=== PATIENT | male | born 1955 | race Hispanic/Latino ===

== ENCOUNTER → 2023-09-14 | Emergency (ER) | payer MEDICARE ==
[~2023-09-14] MED LIST: KETOROLAC 30 MG/ML INJ ONE; MORPHINE 4 MG/ML SYR ONE; ONDANSETRON 4 MG/2 ML VIAL ONE
[2023-09-14 15:00] LABS: Hematocrit 42.6 % (39.6-49.0); Lymphocytes % 10.5 % (15.3-44.8); MCV 87.4 fL (80-100); MPV 7.5 fL (7.6-11.3); Platelets 379 thou/uL (152-406); RBC Red Blood Cell Count 4.88 M/uL (4.33-5.43)
[2023-09-14 15:13] LABS: Potassium 4.1 mEq/L (3.5-5.1)
--- NOTE | 2023-09-14 16:40 | RAD REPORT ---
EXAM DESCRIPTION: [place] Single View09/14/2023 3:26 pm CLINICAL HISTORY: right lower rib pain COMPARISON: Head C Spine Cap W Con dated 09/14/2023 TECHNIQUE: Portable AP view of the chest. FINDINGS: Bibasilar subsegmental airspace opacities more pronounced on the right. No pneumothorax o r effusion. The cardiomediastinal contours are unremarkable. IMPRESSION: Bibasilar small opacities as above, favoring atelectasis.
[2023-09-14 17:00] LABS: Specific Gravity 1.021 (1.005-1.030); Urine Bilirubin NEGATIVE (Negative); Urine Blood Negative (Negative); Urine Clarity Clear (Clear); Urine Color Colorless (Yellow); Urine Glucose NEGATIVE (Negative); Urine Protein NEGATIVE (Negative); Urine Urobilinogen Normal (Normal)
--- NOTE | 2023-09-14 17:18 | RAD REPORT ---
EXAM DESCRIPTION: CT - Head C Spine Cap Christiano Murphy - 09/14/2023 3:38 pm CLINICAL HISTORY: fall from ladder COMPARISON: No comparisons TECHNIQUE: Head and cervical spine CT images were obtained without IV contrast. Chest, abdomen, and pelvis CT images were obtained following intravenous administration of 100 mL Isovue-300. Multiplanar reformats were generated and reviewed. All CT scans are performed using dose optimization technique as appropriate and may include automated exposure control or mA/KV adjustment according to patient size. FINDINGS: CT HEAD: No intracranial hemorrhage, mass effect, or edema. No evidence of acute territorial infarct. No midli ne shift or abnormal fluid collection. The ventricles are normal in caliber and configuration for age . Basal cisterns are patent. Mastoid aircells and paranasal sinuses are clear. No acute skull fractur e. CT CERVICAL SPINE: No acute cervical spine fracture or subluxation. Vertebral body heights are well maintained. Facet dat ints are normal in alignment. No hyperattenuating canal hematoma. Prevertebral and paraspinous soft t issues are unremarkable. CT CHEST: No pneumothorax, pulmonary contusion or pleural fluid collection. No mediastinal hematoma and the aor ta and pulmonary arteries are unremarkable. No chest will mass or abnormal axillary finding. No displ aced rib fracture or other significant bony finding. CT ABDOMEN/ PELVIS: No evidence of traumatic injury to solid abdominal viscera. Gallbladder shows multiple cholesterol co ntaining stones, largest measuring 2.5 cm. Small hepatic cysts, largest near the gallbladder bed maribel uring 2.4 cm. No bowel injury or significant finding. No free air, free fluid or abnormal fat strandi ng. No urinary bladder abnormality. No significant bony finding. IMPRESSION: No acute traumatic findings. Incidental findings as above.
--- NOTE | 2023-09-14 17:40 | ER ---
Nurse's Notes [facility] Name: Win Cross Age: 68 yrs Sex: Male : 1955 Arrival Date: 09/14/2023 Time: 13:15 Bed 20 Private MD: Diagnosis: Fall on and from ladder, initial encounter;Contusion of thorax, unspecified, initial encounter-right lateral rib area;Other cholelithiasis without obstruction Presentation: 09/14 13:26 Chief complaint: Patient states: Right back pain since he fell over a ladder Monday, nj1 cough Monday and pain got worse. Able to ambulate but states he cannot sit. Has taken tylenol and advil with some relief, states it doesn't hurt unless he moves a certain way or coughing. Coronavirus screen: Vaccine status: Patient reports receiving the 2nd dose of the covid vaccine. Ebola Screen: Patient denies travel to an Ebola-affected area in the 21 days before illness onset. Initial Sepsis Screen: Does the patient meet any 2 criteria? No. Patient's initial sepsis screen is negative. Does the patient have a suspected source of infection? No. Patient's initial sepsis screen is negative. Risk Assessment: Do you want to hurt yourself or someone else? Patient reports no desire to harm self or others. Onset of symptoms was September 10, 2023. 13:26 Method Of Arrival: Ambulatory [facility] 13:26 Acuity: JOSE 3 nj1 Historical: - Allergies: 13:33 No Known Allergies; nj1 - PMHx: 13:33 Hypertensive disorder; BPH; Anxiety; Depressive disorder; nj1 - PSHx: 13:33 Appendectomy; nj1 - Immunization history:: Client reports receiving the 2nd dose of the Covid vaccine. - Social history:: Smoking status: Patient denies any tobacco usage or history of. Screenin:50 [facility] ED Fall Risk Assessment (Adult) Score/Fall Risk Level 0 - 2 = Low Risk nj Oriented to surroundings, Maintained a safe environment, Hourly rounding (assess needs \\T\\ fall precautionary measures) done. Abuse screen: Denies threats or abuse. Denies injuries from another. Nutritional screening: No deficits noted. Tuberculosis screening: No symptoms or risk factors identified. Assessment: 14:49 General: Appears in no apparent distress. uncomfortable, Behavior is calm, cooperative, nj1 appropriate for age. Pain: Complains of pain in back. Neuro: Level of Consciousness is awake, alert, obeys commands, Oriented to person, place, time, situation. Cardiovascular: Patient's skin is warm and dry. Respiratory: Airway is patent Respiratory effort is even, unlabored. Musculoskeletal: Reports pain in back since monday. 15:17 Reassessment: Patient appears in no apparent distress at this time. Patient and/or nj1 family updated on plan of care and expected duration. Pain level reassessed. Patient is alert, oriented x 3, equal unlabored respirations, skin warm/dry/pink. 16:06 General: Pt called this RN into the room requesting water. PT states "it is urgent, my kd3 throat is dry and i am going to cough and if i cough it is going to be bad. It is going to hurt my side and back to cough." This RN notified the provider of the patient's request. Provider gave the patient some water in a cup. Pt notified that the single cup of water would be all that will be provided for the patient until scans are resulted. Pt verbalizes understanding at this time. Pt also states that he needs to stand to urinate. Pt educated on fall risk precautions and advised to use a urinal in the bed. Pt verbalizes understanding. Pt provided a urinal. . Vital Signs: 13:26 BP 155 / 84; Pulse 101; Resp 18; Temp 98.8(O); Pulse Ox 95% ; Weight 95.25 kg; Height 6 nj1 ft. 10 in. ; 14:33 BP 140 / 72; Pulse 82; Resp 17; Pulse Ox 98% on R/A; me1 15:18 BP 160 / 77; Pulse 67; Resp 18; Pulse Ox 96% on R/A; nj1 16:15 BP 155 / 86; Pulse 74; Resp 17; Pulse Ox 99% on R/A; me1 17:15 BP 112 / 64; Pulse 67; Resp 18; Pulse Ox 95% ; me1 18:00 BP 129 / 62; Pulse 58; Resp 18; Pulse Ox 95% on R/A; me1 18:34 BP 123 / 77; Pulse 73; Resp 20; Pulse Ox 98% on R/A; me1 13:26 Body Mass Index 21.96 (95.25 kg, 208.28 cm) nj1 ED Course: 13:23 Patient arrived in ED. mg5 13:27 Joel Freeman PA is PHCP. cp 13:27 Enrique Da Silva MD is Attending Physician. cp 13:33 Triage completed. nj1 13:34 Arm band placed on right wrist. nj1 14:23 Vandana Boothe, RN is Primary Nurse. me1 14:41 Basic Metabolic Panel Sent. me1 14:41 CBC with Diff Sent. me1 14:41 Type And Screen Sent. me1 14:41 Inserted saline lock: 22 gauge in left antecubital area, using aseptic technique. me1 14:50 Patient has correct armband on for positive identification. Bed in low position. Call nj1 light in reach. Provided Education on: call light, fall precautions. 15:27 XRAY Chest (1 view) In Process Unspecified. EDMS 15:40 CT Traumagram (Head C Spine CAP W Con) In Process Unspecified. EDMS 16:41 Urinalysis w/ reflexes Sent. me1 18:09 No provider procedures requiring assistance completed. me1 18:34 IV discontinued, intact, bleeding controlled, No redness/swelling at site. Pressure me1 dressing applied. Administered Medications: 14:45 Drug: Ondansetron IVP 4 mg IVP once; over 2 minutes Route: IVP; Site: left antecubital; nj1 15:21 Follow up: Response: No adverse reaction nj1 14:47 Drug: morphine IVP or IV 4 mg IVP once over 4 mins Route: IVP; Infused Over: 4 mins; nj1 Site: left antecubital; 15:21 Follow up: Response: No adverse reaction; Pain is decreased nj1 18:06 Drug: Ketorolac IVP 15 mg IVP once Route: IVP; Site: left antecubital; me1 18:35 Follow up: Response: No adverse reaction me1 Medication: 18:10 VIS not applicable for this client. me1 Outcome: 17:39 Discharge ordered by . cp 18:34 Discharged to home ambulatory, me1 18:34 Condition: stable 18:34 Discharge instructions given to patient, Instructed on discharge instructions, follow up and referral plans. medication usage, Demonstrated understanding of instructions, follow-up care, medications, Prescriptions given X 2, 18:35 Patient left the ED. me1 Signatures: Dispatcher [employer] EDMS Joel Freeman PA PA cp Doucette, Kyli RN RN kd3 Leti Montes De Oca RN RN nj1 Vandana Boothe RN RN me1 Izzy Lee mg5 Corrections: (The following items were deleted from the chart) 14:24 13:26 Chief complaint: Patient states: Right back pain since he fell over a ladder me1 Monday, cough Monday and pain got worse. Able to ambulate but states he cannot sit. Has taken tylenol and advil with some relief, states it doesn't hurt unless he moves a certain way or coughing. nj1
--- NOTE | 2023-09-14 17:40 | EDPHYS ---
Physician Documentation [facility] Name: Win [facility] Age: 68 yrs Sex: Male : 1955 Arrival Date: 09/14/2023 Time: 13:15 Bed 20 Private MD: ED Physician Enrique Da Silva HPI: 09/14 13:45 This 68 yrs old Male presents to ER via Ambulatory with complaints of Side cp Pain. 13:45 The patient presents with pain that is acute. The symptoms are located in the right mid cp back. 13:45 Onset: The symptoms/episode began/occurred 4 day(s) ago. Associated signs and symptoms: cp Pertinent positives: fever, cough. The problem was sustained during a fall, from ladder about 4 ft high. 13:45 Severity of symptoms: in the emergency department the symptoms are actually worse, cp moderately. 13:45 Modifying factors: the patient symptoms are aggravated by coughing, movement. cp Historical: - Allergies: 13:33 No Known Allergies; nj1 - PMHx: 13:33 Hypertensive disorder; BPH; Anxiety; Depressive disorder; nj1 - PSHx: 13:33 Appendectomy; nj1 - Immunization history:: Client reports receiving the 2nd dose of the Covid vaccine. - Social history:: Smoking status: Patient denies any tobacco usage or history of. ROS: 13:50 Back: Positive for flank pain, on the right, cp 13:50 Constitutional: Negative for body aches, chills, fever, poor PO intake, cp 13:50 Cardiovascular: Positive for chest pain, of the right lower lateral chest wall, Negative for edema, palpitations, 13:50 Respiratory: Positive for cough, Negative for shortness of breath, wheezing, 13:50 Abdomen/GI: Negative for vomiting, diarrhea, constipation, 13:50 Eyes: Negative for injury, pain, redness, and discharge, cp 13:50 ENT: Negative for drainage from ear(s), ear pain, sore throat, difficulty swallowing, difficulty handling secretions, 13:50 Neck: Negative for pain with movement, pain at rest, stiffness, 13:50 Neuro: Negative for altered mental status, dizziness, headache, loss of consciousness, syncope, weakness, 13:50 All other systems are negative, Exam: 13:55 Constitutional: The patient appears in no acute distress, alert, awake, cp non-diaphoretic, non-toxic, well developed, well nourished, uncomfortable, 13:55 Head/Face: Normocephalic, atraumatic. cp 13:55 Eyes: Periorbital structures: appear normal, Conjunctiva: normal, no exudate, no injection, Sclera: no appreciated abnormality, Lids and lashes: appear normal, bilaterally, 13:55 ENT: External ear(s): are unremarkable, Nose: is normal, Mouth: Lips: moist, Oral mucosa: pink and intact, moist, Posterior pharynx: Airway: no evidence of obstruction, patent, 13:55 Neck: C-spine: vertebral tenderness, is not appreciated, crepitus, is not appreciated, ROM/movement: is normal, is supple, without pain, no range of motions limitations, 13:55 Chest/axilla: Inspection: normal, Palpation: is normal, crepitus, is not appreciated, of the right lower lateral chest wall, tenderness, that is moderate, of the right lower lateral chest wall, 13:55 Cardiovascular: Rate: tachycardic, Rhythm: regular, Edema: is not appreciated, JVD: is not appreciated, 13:55 Respiratory: the patient does not display signs of respiratory distress, Respirations: normal, no use of accessory muscles, no retractions, labored breathing, is not present, Breath sounds: are clear throughout, no decreased breath sounds, no stridor, no wheezing, 13:55 Abdomen/GI: Inspection: bruising, right lower lateral abdomen, Bowel sounds: active, all quadrants, Palpation: abdomen is soft and non-tender, in all quadrants, 13:55 Back: vertebral tenderness, is not appreciated, 13:55 Neuro: Orientation: to person, place \T\ time. Mentation: is normal, Motor: moves all fours, strength is normal, Sensation: is normal, Gait: is steady, Vital Signs: 13:26 BP 155 / 84; Pulse 101; Resp 18; Temp 98.8(O); Pulse Ox 95% ; Weight 95.25 kg; Height 6 nj1 ft. 10 in. ; 14:33 BP 140 / 72; Pulse 82; Resp 17; Pulse Ox 98% on R/A; me1 15:18 BP 160 / 77; Pulse 67; Resp 18; Pulse Ox 96% on R/A; ga1 16:15 BP 155 / 86; Pulse 74; Resp 17; Pulse Ox 99% on R/A; la1 17:15 BP 112 / 64; Pulse 67; Resp 18; Pulse Ox 95% ; me1 18:00 BP 129 / 62; Pulse 58; Resp 18; Pulse Ox 95% on R/A; me1 18:34 BP 123 / 77; Pulse 73; Resp 20; Pulse Ox 98% on R/A; me1 13:26 Body Mass Index 21.96 (95.25 kg, 208.28 cm) ga1 MDM: 13:39 Patient medically screened. 15:00 Differential diagnosis: vertebral fracture, contusion, fracture, pneumothorax. 09/14 13:40 Order name: Basic Metabolic Panel; Complete Time: 16:01 09/14 16:02 Interpretation: Normal except: NA 135; GLUC 125; BUN 21; GFR 59. 09/14 13:40 Order name: CBC with Diff; Complete Time: 16:01 09/14 16:02 Interpretation: Normal except: MPV 7.5; ANATOLIY% 81.9; LYM% 10.5; NEUT A 8.1. 09/14 13:40 Order name: Type And Screen; Complete Time: 16:01 09/14 13:40 Order name: Urinalysis w/ reflexes; Complete Time: 17:25 09/14 13:40 Order name: CT Traumagram (Head C Spine CAP W Con); Complete Time: 17:25 09/14 14:29 Order name: XRAY Chest (1 view); Complete Time: 16:46 09/14 16:46 Interpretation: Report review. 09/14 13:40 Order name: Labs collected and sent; Complete Time: 14:41 cp Administered Medications: 14:45 Drug: Ondansetron IVP 4 mg IVP once; over 2 minutes Route: IVP; Site: left antecubital; nj1 15:21 Follow up: Response: No adverse reaction nj1 14:47 Drug: morphine IVP or IV 4 mg IVP once over 4 mins Route: IVP; Infused Over: 4 mins; nj1 Site: left antecubital; 15:21 Follow up: Response: No adverse reaction; Pain is decreased nj1 18:06 Drug: Ketorolac IVP 15 mg IVP once Route: IVP; Site: left antecubital; me1 18:35 Follow up: Response: No adverse reaction me1 Disposition Summary: 09/14/23 17:39 Discharge Ordered Notes: Location: Home cp Problem: new cp Symptoms: have improved cp Condition: Stable cp Diagnosis - Fall on and from ladder, initial encounter cp - Contusion of thorax, unspecified, initial encounter - right lateral rib area cp - Other cholelithiasis without obstruction cp Followup: cp - With: Private Physician - When: 2 - 3 days - Reason: Recheck today's complaints Discharge Instructions: - Discharge Summary Sheet cp - Chest Contusion, Adult cp - Fall Prevention in the Home, Adult cp - Cholelithiasis cp Forms: - Medication Reconciliation Form cp - Thank You Letter cp - Antibiotic Education cp - Prescription Opioid Use cp - Patient Portal Instructions cp - Leadership Thank You Letter cp Prescriptions: - Ibuprofen 800 mg Oral Tablet - take 1 tablet ORAL route every 8 hours As needed take with food; 30 tablet; cp Refills: 0, Product Selection Permitted - Cyclobenzaprine 10 mg Oral tablet - take 1 tablet ORAL route every 8 hours As needed; 20 tablet; Refills: 0, cp Product Selection Permitted Signatures: Dispatcher [employer] EDMS Joel Freeman PA PA cp Leti Montes De Oca RN RN nj1 Vandana Boothe RN RN me1 Corrections: (The following items were deleted from the chart) 09/15 17:16 15:52 Back: Positive for flank pain, on the right, cp cp
[2023-09-14 22:16] VITALS: TEMP 98.8
[2023-09-14 22:28] VITALS: BP 123/77; O2SAT 98
== END ==
LOC: ER 13:15
DX: S20.211A Contusion of right front wall of thorax, initial encounter (principal); K80.80 Other cholelithiasis without obstruction; W11.XXXA Fall on and from ladder, initial encounter; I10 Essential (primary) hypertension
CPT/HCPCS: 85025; 80048; 36415; 86900; 86850; 86901; 81003; 70450; 72125; 71260; 74177; 71045; 96375; 96374; 99284; Q9967; J2405